=== PATIENT | male | born 1990 | race Asian ===

== ENCOUNTER 2016-09-01 05:44 | Emergency (ER) | payer BC ==
[2016-09-01] MEDS ORDERED: KETOROLAC TROMETHAMINE 30 MG/1 ML VIAL IVPUSH ONE (05:56)
[2016-09-01] MEDS ORDERED: SODIUM CHLORIDE 1,000 ML IV STA (05:56)
--- NOTE | 2016-09-01 06:03 | PDOC ---
History of Present Illness - General Chief Complaint: Pain, Acute Stated Complaint: PAIN Time Seen by Provider: 09/01/16 05:55 History Source: Patient Exam Limitations: No Limitations - History of Present Illness Travel History: No Initial Comments: 09/01/16 05:57 This is a 25yo man with PMH of hld who presents with sudden onset severe right flank pain while sleeping. Pain radiates to RLQ. Denies nausea, vomiting, hematuria, dysuria or changes in bowel or bladder continence. Timing/Duration: reports: constant Quality: reports: mild Abdominal Pain Onset Location: reports: flank Pain Radiation: reports: RLQ Activities at Onset: reports: sleep Aggravating Factors: improves with: None Alleviating Factors: improves with: None Past History - Past Medical History Allergies/Adverse Reactions: Allergies Allergy/AdvReac Type Severity Reaction Status Date / Time No Known Allergies Allergy Verified 09/01/16 06:03 Home Medications: Ambulatory Orders NK [No Known Home Medication] 09/01/16 Review of Systems - Review of Systems Able to Perform ROS?: Yes Is the patient limited Belgian proficient: No Constitutional: No: Symptoms Reported HEENTM: No: Symptoms Reported Respiratory: No: Symptoms reported Cardiac (ROS): No: Symptoms Reported ABD/GI: Yes: See HPI. No: Abdominal Distended, Nausea, Rectal Bleeding, Vomiting : Yes: Flank Pain. No: Dysuria, Frequency, Hematuria, Testicular Pain Musculoskeletal: No: Symptoms Reported Integumentary: No: Symptoms Reported Neurological: No: Symptoms reported *Physical Exam - Physical Exam General Appearance: Yes: Appropriately Dressed. No: Apparent Distress HEENT: positive: EOMI, MISTI, Normal Voice Neck: positive: Trachea midline, Supple Respiratory/Chest: positive: Lungs Clear, Normal Breath Sounds. negative: Chest Tender, Respiratory Distress Cardiovascular: positive: Regular Rhythm, Regular Rate, S1, S2. negative: Edema , Murmur Gastrointestinal/Abdominal: positive: Normal Bowel Sounds, Soft. negative: Tender, Organomegaly, Distended, Guarding, Rebound, Mass, Hepatomegaly, Spleenomegaly Musculoskeletal: positive: Normal Inspection, CVA Tenderness (R) Extremity: positive: Normal Capillary Refill, Normal Inspection Integumentary: positive: Normal Color, Dry, Warm Neurologic: positive: director clinical data II-XII NML intact, Fully Oriented, Alert, Motor Strength 5/5 ED Treatment Course - LABORATORY CBC & Chemistry Diagram: 09/01/16 06:15 09/01/16 06:15 Medical Decision Making - Medical Decision Making 09/01/16 05:59 A/P: This is a 25yo man with PMH hld who presents with sudden onset severe right flank pain while sleeping. Pain radiates to RLQ. Denies nausea, vomiting, hematuria, dysuria or changes in bowel or bladder continence. (+) CVAT on right. DDx: renal calculi vs pyelo vs appendicitis - CBC, CMP, UA, urine cx - NS 1 liter bolus - Toradol 30mg IV now - spiral CT *DC/Admit/Observation/Transfer Diagnosis at time of Disposition: Musculoskeletal pain, Trapezius muscle strain - Discharge Dispostion Disposition: HOME Condition at time of disposition: Improved - Patient Instructions Printed Discharge Instructions: DI for Muscle Strain Additional Instructions: At this point I do recommend taking Motrin 600 mg every 8 hours for improvement of discomfort and inflammation. You may also apply ice for the next 2-3 days then heat thereafter. If symptoms worsen these return to the ED . otherwise follow up with her primary care physician.
[2016-09-01 06:05] VITALS: BMI 27.4
[2016-09-01] MEDS ORDERED: KETOROLAC TROMETHAMINE 30 MG/1 ML VIAL ONE (06:17)
[2016-09-01 06:41] LABS: BASOPHIL 0.8 % (0-2.0); EOSINOPHIL 5.9 % (0-4.5); MCH 27.7 pg (25.7-33.7); MEAN PLT VOLUME 7.8 fl (7.5-11.1); NEUTROPHILS 41.7 % (42.8-82.8); PLATELET COUNT 233 K/MM3 (134-434); RDW 13.3 % (11.9-15.9); WHITE BLOOD COUNT 4.3 K/mm3 (4.0-10.0)
[2016-09-01 07:04] LABS: ALBUMIN 4.2 g/dl (3.4-5.0); ANION GAP 6 (8-16); CALCIUM 9.3 mg/dL (8.5-10.1); CO2 30 mmol/L (21-32); GLUCOSE,RANDOM 118 mg/dL (74-106); SGPT/ALT 27 U/L (12-78)
[2016-09-01 07:06] LABS: ALK PHOS 61 U/L (45-117); BILIRUBIN,TOTAL 1.4 mg/dL (0.2-1.0); TOT PROT 7.3 g/dl (6.4-8.2)
[2016-09-01 07:08] LABS: URINE APPEARANCE CLEAR; URINE BILIRUBIN NEGATIVE (NEGATIVE); URINE BLOOD NEGATIVE (NEGATIVE); URINE COLOR STRAW; URINE GLUCOSE (UA) NEGATIVE (NEGATIVE); URINE KETONE NEGATIVE (NEGATIVE); URINE LEUK ESTERASE NEGATIVE (NEGATIVE); URINE NITRITE NEGATIVE (NEGATIVE); URINE PROTEIN NEGATIVE (NEGATIVE); URINE UROBILINOGEN NEGATIVE mg/dL (0.2-1.0)
[2016-09-01 07:09] LABS: SGOT/AST 27 U/L (15-37)
--- NOTE | 2016-09-01 07:16 | PDOC ---
*Physical Exam - Vital Signs Last Vital Signs Temp Pulse Resp BP Pulse Ox 97.5 F L 85 14 129/75 100 09/01/16 06:04 09/01/16 06:04 09/01/16 06:04 09/01/16 06:04 09/01/16 06:04 ED Treatment Course - LABORATORY CBC & Chemistry Diagram: 09/01/16 06:15 09/01/16 06:15 - ADDITIONAL ORDERS Additional order review: Laboratory Results 09/01/16 06:15 Sodium 139 Potassium 4.4 Chloride 103 Carbon Dioxide 30 Anion Gap 6 L BUN 19 H Creatinine 1.0 Creat Clearance w eGFR > 60 Random Glucose 118 H D Calcium 9.3 Total Bilirubin 1.4 H AST 27 D ALT 27 Alkaline Phosphatase 61 Total Protein 7.3 Albumin 4.2 09/01/16 06:15 RBC 4.83 MCV 84.0 MCHC 33.0 RDW 13.3 MPV 7.8 Neutrophils % 41.7 L Lymphocytes % 43.6 H Monocytes % 8.0 Eosinophils % 5.9 H Basophils % 0.8 - Medications Given in the ED: ED Medications Discontinued Medications Generic Name Dose Route Start Last Admin Trade Name Freq PRN Reason Stop Dose Admin Sodium Chloride 1,000 mls @ 1,000 mls/hr 09/01/16 05:56 09/01/16 06:28 Normal Saline - IV 09/01/16 06:55 1,000 mls/hr ASDIR STA Administration Ketorolac Tromethamine 30 mg 09/01/16 05:56 09/01/16 06:29 Toradol Injection - IVPUSH 09/01/16 05:57 30 mg ONCE ONE Administration Medical Decision Making - Medical Decision Making 09/01/16 07:14 Patient received in sign out from [employer] Bennett. Patient with complaints of right flank pain. Labs and CT pending. 09/01/16 08:08 CT of the abdomen and pelvis shows no acute findings for liver, spleen, pancreas and kidneys. There is no bowel obstruction, colitis, diverticulitis, free fluid or free air seen. CT otherwise negative. Lipase pending. Will reevaluate patient. 09/01/16 08:08 Laboratory Tests 09/01/16 09/01/16 09/01/16 06:15 06:15 06:42 WBC 4.3 Hgb 13.4 Hct 40.6 Neutrophils % 41.7 L Sodium 139 Potassium 4.4 Chloride 103 Carbon Dioxide 30 Anion Gap 6 L BUN 19 H Creatinine 1.0 Random Glucose 118 H D Calcium 9.3 Total Bilirubin 1.4 H AST 27 D ALT 27 Urine Ketones Negative Urine Nitrite Negative Urine Urobilinogen Negative Ur Leukocyte Esterase Negative 09/01/16 08:41 Laboratory Tests 09/01/16 06:15 Total Bilirubin 1.4 H Lipase 236 Patient states improvement of discomfort after receiving the Toradol. Patient on exam did have right lower trapezius tenderness at the mid scapular line radiating to the mid axillary line over the 10th rib . skin intact. No hypersensitivity. Patient with noted increased discomfort with bending to the left side or rotation to the left side *DC/Admit/Observation/Transfer Diagnosis at time of Disposition: Musculoskeletal pain Strain of trapezius muscle Qualifiers: Encounter type: initial encounter Laterality: right Qualified Code(s): S46.811A - Strain of other muscles, fascia and tendons at shoulder and upper arm level, right arm, initial encounter - Discharge Dispostion Disposition: HOME Condition at time of disposition: Improved - Patient Instructions Printed Discharge Instructions: DI for Muscle Strain Additional Instructions: At this point I do recommend taking Motrin 600 mg every 8 hours for improvement of discomfort and inflammation. You may also apply ice for the next 2-3 days then heat thereafter. If symptoms worsen these return to the ED . otherwise follow up with her primary care physician.
[2016-09-01 07:35] VITALS: BP 119/71; PULSE 62; TEMP 97.8
== END 2016-09-01 09:05 | disposition home or self-care (01) ==
LOC: JER 05:44
PROC: 3E0333Z Introduction of Anti-inflammatory into Peripheral Vein, Percutaneous Approach (ICD-10-PCS; principal; 2016-09-01)
DX: R10.31 Right lower quadrant pain (principal); S46.811A Strain of other muscles, fascia and tendons at shoulder and upper arm level, right arm, initial encounter; X58.XXXA Exposure to other specified factors, initial encounter; Y93.89 Activity, other specified; Y92.89 Other specified places as the place of occurrence of the external cause
CPT/HCPCS: 36415; 74176; 80053; 81003; 83690; 85025; 87086; 87186; 99284-25